=== PATIENT | female | born 1930 | race Caucasian/White ===

== ENCOUNTER 2017-01-14 06:56 | Emergency (ER) | payer MEDICARE, BC ==
[2017-01-14] MEDS ORDERED: KETOROLAC 30 MG/ML 1 ML VIAL IM STA (07:21)
--- NOTE | 2017-01-14 07:25 | ED ---
General Adult HPI - General Chief complaint: Extremity Injury, Lower Stated complaint: back pain Time Seen by Provider: 01/14/17 07:11 Source: patient, EMS, RN notes reviewed Mode of arrival: EMS Limitations: no limitations - History of Present Illness Initial comments: 86-year-old female presents for evaluation of left hip pain. Patient states that over the past 10 days her left hip has had worsening pain pain as described in sharp and severe in nature, worse with movement. Patient has been ambulatory however she is moving very slow and having severe pain. Denies any specific trauma. She states that at the onset of pain she was helping her install a shelving bracket and was stretched in an opposition at that time. Denies abdominal pain. Denies lower extremity swelling. Denies pain in the knee or ankle. Denies change in bowel movements. Denies dysuria. Denies fever or chills. - Related Data Home Medications Medication Instructions Recorded Confirmed Ergocalciferol (Vitamin D2) 50,000 unit PO Q30D 01/14/17 01/14/17 [Vitamin D2] Levothyroxine Sodium [Synthroid] 50 mcg PO DAILY 01/14/17 01/14/17 Loratadine [Claritin] 10 mg PO DAILY PRN 01/14/17 01/14/17 Lovastatin [Mevacor] 20 mg PO HS 01/14/17 01/14/17 Meloxicam [Mobic] 7.5 mg PO DAILY 01/14/17 01/14/17 Omeprazole 20 mg PO DAILY PRN 01/14/17 01/14/17 Vit C/E/Zn/Coppr/Lutein/Zeaxan 1 cap PO DAILY 01/14/17 01/14/17 [Preservision Areds 2 Softgel] cycloSPORINE 0.05% OPHTH SOLN 1 applicator BOTH EYES Q12H 01/14/17 01/14/17 [Restasis] Previous Rx's Medication Instructions Recorded methylPREDNISolone Dose Pack 4 mg PO DIRECTED #21 package 01/14/17 [Medrol Dose Pack] Allergies Allergy/AdvReac Type Severity Reaction Status Date / Time grass pollen AdvReac Rash/Hives Verified 01/14/17 07:25 Review of Systems ROS Statement: Those systems with pertinent positive or pertinent negative responses have been documented in the HPI. ROS Other: All systems not noted in ROS Statement are negative. Past Medical History History of Any Multi-Drug Resistant Organisms: None Reported Past Surgical History: Orthopedic Surgery Additional Past Surgical History / Comment(s): left knee surgery Past Psychological History: No Psychological Hx Reported Smoking Status: Never smoker Past Alcohol Use History: None Reported Past Drug Use History: None Reported General Exam Limitations: no limitations General appearance: alert, in no apparent distress Head exam: Present: atraumatic, normocephalic Eye exam: Present: normal appearance, PERRL ENT exam: Present: normal exam Neck exam: Present: normal inspection. Absent: tenderness, meningismus Respiratory exam: Present: normal lung sounds bilaterally. Absent: respiratory distress Cardiovascular Exam: Present: regular rate, normal rhythm GI/Abdominal exam: Present: soft. Absent: distended, tenderness Extremities exam: Present: normal inspection, normal capillary refill, other ( Distal pulses intact, normal cap refill, no pain with range of motion at the knee. Pain at the left hip with internal and external rotation, point tenderness over the lateral aspect of the hip.). Absent: pedal edema, calf tenderness Neurological exam: Present: alert, oriented X3, CN II-XII intact. Absent: motor sensory deficit Psychiatric exam: Present: normal affect, normal mood Skin exam: Present: warm, dry, intact. Absent: cyanosis, diaphoretic Course Vital Signs 01/14/17 01/14/17 06:59 08:20 Temperature 97.4 F L Pulse Rate 84 70 Respiratory 20 16 Rate Blood Pressure 171/86 157/70 O2 Sat by Pulse 97 97 Oximetry Medical Decision Making - Medical Decision Making 86-year-old female with 10 day history of progressively worsening left hip pain. Patient does have tenderness on the lateral aspect of the hip over the trochanteric bursa. X-rays obtained, negative for fracture dislocation. Patient is in significant pain, CT is obtained to evaluate for occult fracture, this is negative. There was some degenerative changes. After Toradol and steroids patient is feeling better. She is ambulatory in the emergency department. She will use her walker at home. She does have an appointment with her orthopedic surgeon on Thursday which is 2 days from now. She will maintain that appointment. Disposition Clinical Impression: Trochanteric bursitis of left hip Disposition: HOME SELF-CARE Condition: Good Instructions: Hip Bursitis (ED) Prescriptions: methylPREDNISolone Dose Pack [Medrol Dose Pack] 4 mg PO DIRECTED #21 package Referrals: Fortunato Farrar MD [Primary Care Provider] - 1-2 days Daryl García DO [Doctor of Osteopathic Medicine] - 1-2 days Time of Disposition: 10:32
--- NOTE | 2017-01-14 07:51 | XR ---
EXAMINATION TYPE: XR Hip Complete LT DATE OF EXAM: 01/14/2017 CLINICAL HISTORY: pain TECHNIQUE: AP and frogleg views of the left hip are obtained. COMPARISON: None. FINDINGS: There is no acute fracture/dislocation evident. The joint space appears within normal li mits. The overlying soft tissue appears unremarkable. IMPRESSION: 1. There is no acute fracture or dislocation.ICD 10 NO FRACTURE, INITIAL EVALUATION
[2017-01-14] MEDS ORDERED: DEXAMETHASONE SOD PHOSPHATE 10 MG/ML 1 ML VIAL IM STA (08:35)
--- NOTE | 2017-01-14 10:18 | CT ---
EXAMINATION TYPE: CT hip LT wo con DATE OF EXAM: 01/14/2017 COMPARISON: NONE HISTORY: Lt hip pain CT DLP: 436 mGycm Automated exposure control for dose reduction was used. Unenhanced CT of the left hip was performed with bone and soft tissue window settings submitted. Jaskaran nal axial and sagittal images are reviewed. 3-D image degeneration at the separate workstation. FINDINGS: I do not see evidence for fracture or dislocation. Greater and lesser trochanteric spurring is identi fied. Mild degenerative narrowing left hip joint space. No evidence for soft tissue mass or abnormal collection. IMPRESSION: 1. NO EVIDENCE FOR FRACTURE OR DISLOCATION. 2. DEGENERATIVE CHANGES.
[2017-01-14 11:06] VITALS: BP 169/77; PULSE 79; RESP 18; TEMP 98.2
== END 2017-01-14 11:05 | disposition home or self-care (01) ==
LOC: EC 06:56
DX: M70.62 Trochanteric bursitis, left hip (principal); Z79.1 Long term (current) use of non-steroidal anti-inflammatories (NSAID); Z79.899 Other long term (current) drug therapy; Z91.048 Other nonmedicinal substance allergy status; X50.9XXA Other and unspecified overexertion or strenuous movements or postures, initial encounter; Y93.89 Activity, other specified
CPT/HCPCS: 73502; 96372; 99284

== ENCOUNTER → 2019-03-15 | Outpatient (CLI) | payer MEDICARE, BC ==
--- NOTE | 2019-03-15 16:21 | BD ---
EXAMINATION TYPE: Axial Bone Density DATE OF EXAM: 03/15/2019 COMPARISON: 2011 CLINICAL HISTORY: M [age] Height: 5 FT 2 3/4 IN Weight: 194 FRAX RISK QUESTIONS: Alcohol (3 or more units per day): NO Family History (Parent hip fracture): ADOPTED Glucocorticoids (More than 3mos): NO (Ex: prednisone, prednisolone, methylprednisolone, dexamethasone, and hydrocortisone). History of Fracture in Adulthood: NO Secondary Osteoporosis: 1. Type 1 Diabetes: NO 2. Hyperthyroidism: NO 3. Menopause before 45: NO 4. Malnutrition: NO 5. Chronic liver disease: HEPATITIS Rheumatoid Arthritis: NO Current Tobacco Use: NO RISK FACTORS HISTORY OF: Surgery to Spine/Hip(right/left)/Wrist (right/left): BILATERAL CARPAL TUNNEL Postmenopausal woman: TOTAL HYST AGE 49 Take estrogen and/or progesterone medications: TOOK PREMARIN AFTER HYST UNSURE HOW LONG BUT TOOK IT F OR A LONG TIME Lost more than 2 inches in height since high school: YES MEDICATIONS: Thyroid Medications: YES Which medication: LEVOTHYROXINE How Lon-12 YEARS Additional Medications: MELOXICAM, LEVOTHYROXINE,SINGULAIR,LOVASTATIN Additional History: EXAM MEASUREMENTS: Bone mineral densitometry was performed using the [employer] System. Bone mineral density as measured about the Lumbar spine is: ----- L1-L4(G/cm2): 1.500 T Score Values are as follows: ----- L2: 1.7 ----- L3: 3.5 ----- L4: 4.3 ----- L1-L4: 2.7 Bone mineral density has: INCREASED 9.3 % since study of: 2011 Bone mineral density about the R hip (g/cm2): 0.941 Bone mineral density about the L hip (g/cm2): 0.807 T Score values are as follows: -----R Neck: -0.7 -----L Neck: -1.7 -----R Total: 0.3 -----L Total: 0.2 Bone mineral density has: DECREASED -3.8 % since study of: 2012 IMPRESSION: Osteopenia (T Score between -2.5 and -1). There is slightly increased risk of fracture and the patient may be considered for treatment. Re-Screen 2-5 years. NOTE: T-SCORE=SD OF THE YOUNG ADULT MEAN.
== END | disposition home or self-care (01) ==
LOC: RADBDWWP 15:15
PROVIDERS: ATTEND Internal Medicine
DX: M85.80 Other specified disorders of bone density and structure, unspecified site (principal)
CPT/HCPCS: 77080

== ENCOUNTER → 2019-04-26 | Outpatient (CLI) | payer MEDICARE, BC ==
--- NOTE | 2019-04-26 14:10 | XR ---
EXAMINATION TYPE: XR chest 2V DATE OF EXAM: 04/26/2019 COMPARISON: 10/01/2015 HISTORY: Cough for 5 months TECHNIQUE: Frontal and lateral views of the chest are obtained. FINDINGS: There is no focal air space opacity, pleural effusion, or pneumothorax seen. Central perib ronchial cuffing. The cardiac silhouette size is within normal limits. The osseous structures are intact. Mild to moderate degenerative change of the spine with diffuse osseous demineralization. IMPRESSION: No focal consolidation to suggest pneumonia. Central peribronchial cuffing is seen in th e may be on the basis of reactive chronic airway disease or bronchitis.
== END ==
LOC: RADXRMAIN 10:58
PROVIDERS: ATTEND Otolaryngology
DX: R05 Cough (principal)
CPT/HCPCS: 71046

== ENCOUNTER → 2019-10-20 | Outpatient (CLI) | payer MEDICARE, BC ==
[2019-10-20 11:45] LABS: HCT 48.2 % (34.0-46.0); HGB 15.7 gm/dL (11.4-16.0); MCHC 32.5 g/dL (31.0-37.0); MCV 95.3 fL (80.0-100.0); Platelet Count 200 k/uL (150-450); RBC 5.05 m/uL (3.80-5.40); RDW 13.8 % (11.5-15.5); WBC 8.4 k/uL (3.8-10.6)
[2019-10-20 11:52] LABS: INR 0.9 (<1.2); Partial Thromboplastin Time 23.9 sec (22.0-30.0); Prothrombin Time 9.7 sec (9.0-12.0)
[2019-10-20 11:56] LABS: Albumin 4.4 g/dL (3.5-5.0); Calcium 9.9 mg/dL (8.4-10.2); Potassium 4.3 mmol/L (3.5-5.1); Total Bilirubin 0.8 mg/dL (0.2-1.3); Total Protein 7.3 g/dL (6.3-8.2)
[2019-10-20 12:06] LABS: Appearance,Urine Clear (Clear); Bilirubin,Urine Negative (Negative); Blood,Urine Negative (Negative); Color,Urine Light Yellow; Glucose,Urine (UA) Negative (Negative); Ketones,Urine Negative (Negative); Leukocyte Esterase,Urine Moderate (Negative); Mucus,Urine Rare /hpf; Nitrite,Urine Negative (Negative); PH, Urine 5.5 (5.0-8.0); Protein,Urine Negative (Negative); Specific Gravity,Urine 1.007 (1.001-1.035); Urobilinogen,Urine <2.0 mg/dL (<2.0); WBC,Urine 9 /hpf (0-5)
== END | disposition home or self-care (01) ==
LOC: LABPAT 10:22
PROVIDERS: ATTEND Orthopaedic Surgery
DX: Z01.818 Encounter for other preprocedural examination (principal); M16.11 Unilateral primary osteoarthritis, right hip
CPT/HCPCS: 36415; 80053; 81001; 85027; 85610; 85730; 87070

== ENCOUNTER → 2019-10-21 | Outpatient (CLI) | payer MEDICARE, BC | END | disposition home or self-care (01) | LOC: LABPAT 09:13 | PROVIDERS: ATTEND Orthopaedic Surgery | DX: Z53.9 Procedure and treatment not carried out, unspecified reason (principal) ==

== ENCOUNTER 2019-10-25 11:15 | Day surgery (SDC) | payer MEDICARE, BC ==
[2019-10-20 12:10] VITALS: BMI 34.2
[~2019-10-25 11:15] MED LIST: ACETAMINOPHEN TAB 500 MG TAB PO ONE; DEXAMETHASONE SOD PHOSPHATE 10 MG/ML 1 ML VIAL IV ONE; GABAPENTIN 300 MG CAP PO ONE; HYDROcodone/APAP 5-325MG 1 EACH TAB PO PRN; HYDROmorphone 0.5 MG/0.5 ML SYRINGE IVP PRN; LIDOCAINE 1% (10MG/ML) FOR IV START INTRADERMA PRN; MAGNESIUM HYDROXIDE 2,400 MG/10 ML CUP PO PRN; MELOXICAM 7.5 MG TAB PO ONE; NALOXONE 0.4 MG/ML 1 ML VIAL IV PRN; ONDANSETRON 4 MG/2 ML VIAL IVP ONE; ONDANSETRON 4 MG/2 ML VIAL IVP PRN; ROPIVACAINE 246.25 MG, EPINEPHrine 0.5 MG, KETOROLAC 30 MG, cloNIDine HCL/PF 80 MCG, WA... MISCELLANE ONE; TRANEXAMIC ACID 1,000 MG in SODIUM CHLORIDE 0.9% 100 ML IVPB ONE
[2019-10-25] MEDS: LACTATED RINGERS 1,000 ML IV SCH ×2 (12:32→21:56)
[2019-10-25] MEDS ORDERED: MIDAZOLAM 2 MG/2 ML VIAL ONE (13:56)
[2019-10-25] MEDS ORDERED: SODIUM CHLORIDE 0.9% 100 ML BAG ONE (13:56)
[2019-10-25] MEDS ORDERED: SUCCINYLCHOLINE CHLORIDE 100 MG/5 ML SYR IV ONE (13:56)
[2019-10-25] MEDS ORDERED: diphenhydrAMINE 50 MG/ML 1 ML VIAL ONE (13:56)
[2019-10-25] MEDS ORDERED: PROPOFOL 10 MG/ML 20 ML VIAL IV ONE (13:56)
[2019-10-25] MEDS ORDERED: HEPARIN SODIUM,PORCINE 10,000 UNIT/ML 1 ML VIAL ONE (13:56)
[2019-10-25] MEDS ORDERED: fentaNYL (PF) 50 MCG/ML 2 ML AMP ONE (13:56)
[2019-10-25] MEDS ORDERED: LIDOCAINE 1% INJ 10MG/ML (20 ML MDV) ONE (13:56)
[2019-10-25] MEDS ORDERED: TRANEXAMIC ACID 1,000 MG/10 ML VIAL ONE (13:56)
[2019-10-25] MEDS ORDERED: ALBUTEROL INHALER 60 PUFF/8 GM INHALER (MHU) INHALATION ONE (13:56)
[2019-10-25] MEDS ORDERED: ePHEDrine SULFATE/0.9% NACL/PF 50 MG/5 ML SYRINGE IV ONE (13:56)
[2019-10-25] MEDS ORDERED: SODIUM CHLORIDE 0.9% IRRIG 1,000 ML BTL IRRIGATION ONE (13:56)
[2019-10-25] MEDS ORDERED: ceFAZolin 3,000 MG in SODIUM CHLORIDE 0.9% IRRIGATIO 3,000 ML IRRIGATION ONE (14:01)
--- NOTE | 2019-10-25 15:35 | P.OP ---
Date of Procedure: 10/25/19 Preoperative Diagnosis: Severe osteoarthritis right hip Postoperative Diagnosis: Severe osteoarthritis right hip Procedure(s) Performed: Right total hip arthroplasty with a direct anterior approach Implants: Duran and nephew Polarstem size 2 standard Duran [employer]hew R3, 3 hole acetabular shell, 48 mm [employer]hew reflection 6.5 mm cancellus screw, 20 mm 2 [employer]hew R3, XLPE 20 acetabular liner [employer]an [employer] Nephew Oxinium femoral head 32 m, +4 All components were press-fit. The articulation is Oxinium on polyethylene. Anesthesia: spinal Surgeon: Darly García Boatbuilder Apprentice Wood #1: Nikole Tyler Estimated Blood Loss (ml): 150 (59 mL returned with Cell Saver) Pathology: other (Femoral head) Condition: stable Disposition: PACU Indications for Procedure: After failure of conservative treatment we discussed the surgical and nonsurgical treatment options at length. Patient wishes to proceed with a total hip arthroplasty with a direct anterior approach. Complications specific to this procedure were discussed at length, including but not limited to infection, leg length discrepancy, dislocation, and nerve injury. Covid-19 was also discussed at length with the patient, and they are aware of the current policies and procedures. The patient was given the option of delaying surgery, but they elect to proceed knowing these risks. Patient is aware of all these complications and informed consent was obtained Operative Findings: The operative findings are consistent with severe osteoarthritis the right hip Description of Procedure: Patient was seen and evaluated in the preoperative area, consent was reviewed, and the surgical site was marked with a skin marker. Patient was then brought to the operating room and given prophylactic antibiotics intravenously. 1 g of Tranexamic acid was also given. A spinal anesthetic was administered by the anesthesia department. The patient was then placed on the [place] table with the bony prominences well-padded. The hip area was then prepped and draped in usual sterile fashion. A universal timeout was then performed, which confirmed the patient's name, surgical site, ALLERGIES, and procedure being performed. Next the incision site was located at 1 cm distal and 1 cm lateral to the anterior superior iliac spine. The skin and subcutaneous tissues were sharply incised. Incision was carefully dissected down to the fascia overlying the tensor fascia gregor muscle. This fascia was then incised in line with the incision. Next, using blunt finger dissection, the tensor fascia gregor muscle was dissected off its investing fascia. The muscle was then carefully retracted laterally with a cobra retractor over the lateral neck of the femur. Next, the circumflex vessels were identified and cauterized using the AquaMantis device. The anterior hip capsule was then exposed. The capsule was then opened and an inverted T fashion. Cobra retractors were then placed intracapsularly. The proximal femur was then visualized. The femoral neck was then osteotomized appropriate level above the lesser trochanter. Small amount of traction was placed with the [place] table. A small wedge of bone was then removed from the remaining femoral head. Next, using a corkscrew femoral head was easily removed from the acetabulum. On gross visual inspection, the femoral head had complete loss of articular cartilage in multiple periarticular osteophytes. Attention was then turned to the acetabulum. the acetabulum was exposed and any remaining labrum was excised. Sequential reaming of the acetabulum was performed using fluoroscopic guidance. When the appropriate size was reached, a trial was then placed. The position and fit of the trial was checked with fluoroscopy. The trial was then removed. Then, using fluoroscopic guidance, the final implant was impacted at 20 of anteversion and 40 of abduction, and fully seated in the acetabulum. 2 screws were then placed in the acetabulum. Again fluoroscopy was used to check position of the screws. Next, the liner was then impacted, with a 20 elevated liner located in the anterior superior quadrant. Component locking was confirmed. Attention was then directed to the femur. With the aid of the [place] table, the femur was externally rotated to approximately 130, extended, and abducted under the opposite leg. A side hook was then placed under the proximal femur, and the side hook elevator was used to elevate the proximal femur. Retractors were then placed. A capsular release was performed, as well as a release of the conjoined tendon, which afforded excellent visualization of the proximal femur. Next, a box osteotome was used to lateralize the proximal femur. A armhole feller handstitching machine was then used to locate the femoral canal. Sequential broaching was then performed with appropriate size which afforded excellent fixation in the proximal femur. A trial was then placed with appropriate head and neck, and the hip was gently reduced with the aid of the [place] table. Fluoroscopy was then used to check position of the components, as well as to ensure equal leg lengths. The hip was then gently dislocated and the trials were then removed. Final implants were then impacted and the hip was again reduced. Final fluoroscopic x-rays confirmed that the components were in anatomic position, as well as equal leg lengths. The hip was also taken through range of motion, and found to be stable. The hip was then copiously irrigated with antibiotic solution with pulsatile lavage. The hip was then irrigated with Irrisept solution. The soft tissues were then injected with a ropivacaine solution, which consisted of 246.25 mg of ropivacaine, 0.5 mg of epinephrine, 30 mg of Toradol, 80 g of clonidine, and 48.45 mL of sterile water, for a total of 100 mL of fluid injected. A second dose of 1 g of Tranexamic acid was also given. the fascia was then closed with 2-0 strata fix suture. The subcutaneous tissue was closed with 3-0 Vicryl. The subcuticular tissue was closed with 3-0 strata fix suture. The skin was then closed with Dermabond glue and a sterile silver dressing. The patient was then transferred to the recovery room in stable condition. The vet assistant KAPIL Alegria was required due to the complexity of surgery, and the need for skilled surgical sales representative for positioning, draping, exposure, retraction, and closure of the wound.
--- NOTE | 2019-10-25 16:00 | FL ---
EXAMINATION TYPE: FL guidance operating room, XR Hip Limited RT DATE OF EXAM: 10/25/2019 CLINICAL HISTORY: Right hip pain and osteoarthritis. TECHNIQUE: Fluoroscopy. Intraoperative limited views right hip. COMPARISON: None. FINDINGS: Fluoroscopic guidance was provided during hip replacement procedure performed by Dr. Justin pedroza. A total of 49 seconds of fluoroscopic time was utilized during the procedure and two spot intra operative images are acquired. Intraoperative images acquired show metallic hardware from total right hip arthroplasty satisfactory in position on frontal projection. IMPRESSION: As Above.
[2019-10-25] MEDS: SODIUM CHLORIDE 0.9% 1,000 ML IV SCH ×2 (17:38→20:15)
--- NOTE | 2019-10-25 18:11 | XR ---
EXAMINATION TYPE: XR Hip Limited RT DATE OF EXAM: 10/25/2019 COMPARISON: None HISTORY: Right hip replacement TECHNIQUE: AP right hip FINDINGS: Femoral and acetabular components of in place. No acute fractures are evident. Postsurgical changes are within the soft tissues. IMPRESSION: 1. No acute fracture post right hip replacement.
[2019-10-25] MEDS: ASPIRIN 325 MG TAB PO SCH (20:14)
[2019-10-25] MEDS ORDERED: SENNOSIDES-DOCUSATE SODIUM 1 EACH TAB PO SCH (21:00)
[2019-10-25] MEDS ORDERED: MONTELUKAST 10 MG TAB PO SCH (21:00)
[2019-10-25] MEDS ORDERED: SYMBICORT 160-4.5 MCG INHALER INHALATION SCH ×2 (21:00→21:02)
[2019-10-25] MEDS ORDERED: ATORVASTATIN 10 MG TAB PO SCH (21:00)
[2019-10-25] MEDS ORDERED: PANTOPRAZOLE 40 MG TABLET PO PRN (21:00)
--- NOTE | 2019-10-26 01:28 | P.CONS ---
History of Present Illness - Reason for Consult Consult date: 10/25/19 medical management post op Requesting physician: Daryl García - Chief Complaint scheduled right hip replacement - History of Present Illness 88-year-old female with hypothyroidism and degenerative joint disease Patient comes in for scheduled right hip arthroplasty due to severe advanced degenerative joint disease causing a lot of pain issues. Patient tolerated proc edure well denies any immediate complications related to chest pain or trouble breathing denies any fevers or chills he feels very comfortable pain is well controlled and tolerated with pain pills. She tolerated by mouth intake and she even walked to the bathroom with a walker Patient claims to be at her baseline status of health denies any other medical complaints at this time Review of Systems Pertinent positives as noted in HPI. All other systems were reviewed and are negative Past Medical History Past Medical History: Eye Disorder, GERD/Reflux, Thyroid Disorder Additional Past Medical History / Comment(s): seasonal allergies, irregular heart rates, lt eye macular degeneration with scarring History of Any Multi-Drug Resistant Organisms: None Reported Past Surgical History: Orthopedic Surgery Additional Past Surgical History / Comment(s): left knee surgery Additional Past Anesthesia/Blood Transfusion Reaction / Comm: pt adopted Past Psychological History: No Psychological Hx Reported Smoking Status: Never smoker Past Alcohol Use History: None Reported Past Drug Use History: None Reported - Past Family History Mother Family Medical History: Unable to Obtain Additional Family Medical History / Comment(s): pt adopted Daughter(s) Family Medical History: Cancer Additional Family Medical History / Comment(s): Medications and Allergies Home Medications Medication Instructions Recorded Confirmed Type Ergocalciferol (Vitamin D2) 50,000 unit PO Q7D 01/14/17 10/25/19 History [Vitamin D2] Levothyroxine Sodium [Synthroid] 50 mcg PO DAILY 01/14/17 10/25/19 History Lovastatin [Mevacor] 20 mg PO HS 01/14/17 10/25/19 History Meloxicam [Mobic] 7.5 mg PO DAILY 01/14/17 10/25/19 History Omeprazole 20 mg PO DAILY PRN 01/14/17 10/25/19 History Vit C/E/Zn/Coppr/Lutein/Zeaxan 1 cap PO DAILY 01/14/17 10/25/19 History [Preservision Areds 2 Softgel] cycloSPORINE 0.05% OPHTH SOLN 1 applicator BOTH EYES Q12H 01/14/17 10/25/19 History [Restasis] Budesonide/Formoterol Fumarate 2 puff INHALATION BID 10/20/19 10/25/19 History [Symbicort 160-4.5 Mcg Inhaler] Montelukast Sodium [Singulair] 10 mg PO HS 10/20/19 10/25/19 History Montelukast [Singulair] 10 mg PO DAILY 10/20/19 10/25/19 History Allergies Allergy/AdvReac Type Severity Reaction Status Date / Time adhesive tape Allergy Rash/Hives Verified 10/25/19 11:57 grass pollen AdvReac Rash/Hives Verified 10/25/19 11:57 Physical Exam Vitals: Vital Signs Temp Pulse Resp BP Pulse Ox 10/25/19 19:00 97.6 F 88 20 105/66 94 L 10/25/19 18:00 89 119/66 91 L 10/25/19 17:45 88 178/89 92 L 10/25/19 17:30 97.7 F 90 18 141/75 94 L 10/25/19 17:00 88 16 125/70 96 10/25/19 16:45 78 16 121/65 99 10/25/19 16:30 82 16 144/71 99 10/25/19 16:15 91 16 139/67 99 10/25/19 16:01 93 16 152/68 99 10/25/19 15:53 97.2 F L 91 14 168/80 96 10/25/19 12:14 180/84 10/25/19 12:12 79 96 10/25/19 12:00 97.4 F L 47 L 18 178/80 95 Intake and Output 10/25/19 10/25/19 10/26/19 14:59 22:59 06:59 Intake Total 851 50 Output Total 150 Balance 851 -100 Intake: IV 851 50 Output: Estimated Blood Loss 150 Other: Voiding Method Toilet # Voids 1 Weight 86 kg 86 kg Constitutional: No acute distress, conversant, pleasant Eyes: Anicteric sclerae, moist conjunctiva, Pupils equal round reactive to light ENMT: NC/AT Oropharynx clear, no erythema, or exudates Neck: Supple, FROM, no masses, or JVD No carotid bruits No thyromegaly Lungs: Clear to auscultation Clear to percussion Normal respiratory effort, no accessory muscle use Cardiovascular: Heart regular in rate and rhythm, No murmurs, gallops, or rubs No peripheral edema Abdominal: Soft Nontender, no guarding, rebound or rigidity Abdomen moving with respiration Normoactive bowel sounds No hepatomegaly, No splenomegaly No palpable mass No abdominal wall hernia noted Skin: Normal temperature, tone, texture, turgor No induration No subcutaneous nodules No rash, lesions No ulcers Extremities: No digital cyanosis No clubbing Pedal pulses intact and symmetrical Radial pulses intact and symmetrical No calf tenderness Psychiatric: Alert and oriented to person, place and time Appropriate affect fair judgement Neuro Muscles Strength 5/5 in all 4 extremities slightly limited exam over the right lower extremity especially over the proximal muscle group due to recent surgery Sensation to light touch grossly present throughout Cranial nerves II-XII grossly intact No focal sensory deficits Lymphatics: no palpable cervical or supraclavicular , or inguinal lymph nodes Assessment and Plan Assessment: Right total hip arthroplasty postoperative day 0 Patient tolerated procedure well Pain control and DVT prophylaxis per orthopedic team Hypothyroid resume levothyroxine GERD to resume PPI Follow-up CBC and basic metabolic panel in the morning Thank you for allowing us to participate in the care of this patient. . Do not hesitate to contact us with questions. Someone can be reached from the [facility] [place] hospitalist group at all hours of the day at [phone].
[2019-10-26] MEDS ORDERED: LEVOTHYROXINE 50 MCG TAB PO SCH (06:30)
[2019-10-26] MEDS: ASPIRIN 325 MG TAB PO SCH (07:55)
[2019-10-26 08:10] VITALS: BP 97/60; PULSE 75; RESP 17; TEMP 98.6
--- NOTE | 2019-10-26 08:33 | P.DS ---
Providers Expected date of discharge: 10/26/19 Attending physician: Daryl García Consults: 10/25/19 06:59 Consult Physician Routine Consulting Provider: Natalya Mock Consult Reason/Comments: medical management Do you want consulting provider notified?: Yes Primary care physician: Fortunato Farrar - Discharge Diagnosis(es) (1) Osteoarthritis of right hip Current Visit: Yes Status: Acute (2) S/P total hip arthroplasty Current Visit: Yes Status: Acute Hospital Course: This is a 88-year-old female with known history of degenerative arthritis of the right hip. The patient presents for evaluation. After discussion and consideration patient elects to proceed with total hip arthroplasty. The patient is seen preoperatively by Dr. García and medically cleared for surgery by their primary care physician. Patient is admitted to [facility] on right for total hip arthroplasty. The procedures performed without complication or sequelae. The patient is doing well postoperatively. Labs and vital signs are stable on day of discharge. On day of discharge patient's hip incision is healing well. There is minimal erythema. There is no drainage noted at this time. There is minimal soft tissue swelling to the hip and thigh. Patient has full foot and ankle motion without difficulty or pain. Calf is soft and nontender to palpation. Neurovascular status to the right lower extremity is intact. Patient is dis charged home in good condition. Opioid start talking form is reviewed and signed at patient bedside. Please see med rec for accurate list of home medications. Plan - Discharge Summary Discharge Rx Participant: No New Discharge Prescriptions: New Aspirin 325 mg PO BID #60 tab HYDROcodone/APAP 5-325MG [[place] 5-325] 1 - 2 tab PO Q6HR PRN #48 tab PRN Reason: Pain Sennosides [Senokot] 2 tab PO DAILY PRN #60 tablet PRN Reason: Constipation No Action cycloSPORINE 0.05% OPHTH SOLN [Restasis] 1 applicator BOTH EYES Q12H Omeprazole 20 mg PO DAILY PRN PRN Reason: Heartburn Meloxicam [Mobic] 7.5 mg PO DAILY Lovastatin [Mevacor] 20 mg PO HS Levothyroxine Sodium [Synthroid] 50 mcg PO DAILY Vit C/E/Zn/Coppr/Lutein/Zeaxan [Preservision Areds 2 Softgel] 1 cap PO DAILY Ergocalciferol (Vitamin D2) [Vitamin D2] 50,000 unit PO Q7D Montelukast [Singulair] 10 mg PO DAILY Montelukast Sodium [Singulair] 10 mg PO HS Budesonide/Formoterol Fumarate [Symbicort 160-4.5 Mcg Inhaler] 2 puff INHALATION BID Discharge Medication List Ergocalciferol (Vitamin D2) [Vitamin D2] 50,000 unit PO Q7D 01/14/17 [History] Levothyroxine Sodium [Synthroid] 50 mcg PO DAILY 01/14/17 [History] Lovastatin [Mevacor] 20 mg PO HS 01/14/17 [History] Meloxicam [Mobic] 7.5 mg PO DAILY 01/14/17 [History] Omeprazole 20 mg PO DAILY PRN 01/14/17 [History] Vit C/E/Zn/Coppr/Lutein/Zeaxan [Preservision Areds 2 Softgel] 1 cap PO DAILY 01/14/17 [History] cycloSPORINE 0.05% OPHTH SOLN [Restasis] 1 applicator BOTH EYES Q12H 01/14/17 [History] Budesonide/Formoterol Fumarate [Symbicort 160-4.5 Mcg Inhaler] 2 puff INHALATION BID 10/20/19 [History] Montelukast Sodium [Singulair] 10 mg PO HS 10/20/19 [History] Montelukast [Singulair] 10 mg PO DAILY 10/20/19 [History] Aspirin 325 mg PO BID #60 tab 10/26/19 [Rx] HYDROcodone/APAP 5-325MG [[place] 5-325] 1 - 2 tab PO Q6HR PRN #48 tab 10/26/19 [Rx] Sennosides [Senokot] 2 tab PO DAILY PRN #60 tablet 10/26/19 [Rx] Follow up Appointment(s)/Referral(s): Daryl García DO [Doctor of Osteopathic Medicine] - 2 Weeks Activity/Diet/Wound Care/Special Instructions: Weightbearing as tolerated with walker. Leave dressing intact. Dressing may be removed by home care nurse or by patient in 10 days. May shower with dressing on. Please take aspirin 325mg twice daily for 30 days to prevent blood clots. Recommend use of compression stockings daily until follow up to help prevent swelling and blood clots. May remove at night before sleeping. Please follow-up with [facility] in 2 weeks and call with any questions or concerns, . Discharge Disposition: HOME WITH HOME HEALTH SERVICES
[2019-10-26 08:47] LABS: Basophils % (A) 0 %; Eosinophils % (A) 0 %; HCT 40.2 % (34.0-46.0); HGB 12.8 gm/dL (11.4-16.0); Lymphocytes # (A) 0.9 k/uL (1.0-4.8); Lymphocytes % (A) 6 %; MCH 30.9 pg (25.0-35.0); MCHC 31.7 g/dL (31.0-37.0); MCV 97.5 fL (80.0-100.0); Mean Platelet Volume 11.6; Monocytes % (A) 8 %; Neutrophils # (A) 11.4 k/uL (1.3-7.7); Neutrophils % (A) 85 %; Platelet Count 173 k/uL (150-450); RBC 4.13 m/uL (3.80-5.40); RDW 13.8 % (11.5-15.5); WBC 13.4 k/uL (3.8-10.6)
[2019-10-26] MEDS ORDERED: MONTELUKAST 10 MG TAB PO SCH (09:00)
[2019-10-26] MEDS ORDERED: MELOXICAM 7.5 MG TAB PO SCH (09:00)
[2019-10-26 09:08] LABS: Calcium 8.7 mg/dL (8.4-10.2); Potassium 4.2 mmol/L (3.5-5.1)
--- NOTE | 2019-10-26 10:14 | P.PN ---
Subjective Progress Note Date: 10/26/19 Patient is doing well today. Pain is well-controlled. She is looking forward to be discharged home. Objective - Vital Signs Vital signs: Vital Signs Temp 98.6 F 10/26/19 07:00 Pulse 75 10/26/19 08:05 Resp 17 10/26/19 08:05 BP 97/60 10/26/19 07:00 Pulse Ox 92 L 10/26/19 07:00 Intake & Output 10/25/19 10/26/19 10/26/19 18:59 06:59 18:59 Intake Total 901 560 Output Total 150 Balance 751 560 Weight 86 kg Intake: IV 901 Intake, IV Titration 560 Amount Sodium Chloride 0.9% 1, 560 000 ml @ 70 mls/hr IV . [id number] SURESH Rx#:[id number] Output: Estimated Blood Loss 150 Other: Voiding Method Toilet Toilet # Voids 2 - Exam General: The patient is awake and alert, in no distress Eye: there is normal conjunctiva bilaterally. Neck: The neck is supple, there is no JVD. Cardiovascular: Normal S1-S2, no S3-S4, no murmurs. Respiratory: Lungs clear to auscultation bilaterally Gastrointestinal: Abdomen is soft, nontender Musculoskeletal: There is no pedal edema. Neurological:. Speech is normal. Skin: Skin is warm and dry - Labs CBC & Chem 7: 10/26/19 07:23 10/26/19 07:23 Labs: Abnormal Lab Results - Last 24 Hours (Table) 10/26/19 10/26/19 Range/Units 07:23 07:23 WBC 13.4 H (3.8-10.6) k/uL Neutrophils # 11.4 H (1.3-7.7) k/uL Lymphocytes # 0.9 L (1.0-4.8) k/uL Sodium 136 L (137-145) mmol/L BUN 28 H (7-17) mg/dL Glucose 112 H (74-99) mg/dL Assessment and Plan Assessment: Right total hip arthroplasty postoperative day 1 Patient tolerated procedure well Pain control and DVT prophylaxis per orthopedic team Hypothyroid resume levothyroxine GERD to resume PPI Today, I reviewed her medication list and lab work results. Mild leukocytosis is probably reactive. Patient is medically for discharge. Resume home medication.
== END 2019-10-26 10:56 | disposition home health service (06) ==
LOC: OR 11:15 → 4SSUR 15:45 → OR 10-26 10:56
PROVIDERS: ATTEND Orthopaedic Surgery
DX: M16.11 Unilateral primary osteoarthritis, right hip (principal); D72.829 Elevated white blood cell count, unspecified; E03.9 Hypothyroidism, unspecified; K21.9 Gastro-esophageal reflux disease without esophagitis; M60.88 Other myositis, other site; E78.5 Hyperlipidemia, unspecified; J45.909 Unspecified asthma, uncomplicated; Z79.1 Long term (current) use of non-steroidal anti-inflammatories (NSAID); Z79.51 Long term (current) use of inhaled steroids; Z79.890 Hormone replacement therapy; Z79.899 Other long term (current) drug therapy; Z91.048 Other nonmedicinal substance allergy status; Z91.09 Other allergy status, other than to drugs and biological substances; Z90.49 Acquired absence of other specified parts of digestive tract; Z90.710 Acquired absence of both cervix and uterus; Z96.653 Presence of artificial knee joint, bilateral; Z98.890 Other specified postprocedural states; Z86.19 Personal history of other infectious and parasitic diseases
CPT/HCPCS: 97110; 97161; 97535; 97166; 86891; 80048; 85025; 88300; 73501; 27130; C1776; J2250; J0171; J1200; J1644; J1100; J0690 ×3; J2405; J2001; J3010; J1885; J2795; J0330; J2704; J0735; 86850; 86900; 86901